=== PATIENT | female | born 1990 | race Caucasian/White ===

== ENCOUNTER 2018-09-18 11:21 | Outpatient (CLI) | payer BC ==
--- NOTE | 2018-09-18 11:59 | RAD ---
3 VIEWS RIGHT ANKLE: Date: 09/18/18 COMPARISON: None. HISTORY: Pain. FINDINGS: The talar dome and ankle mortise appear intact. There is no displaced fracture or evidence of disloca tion. There is a pes planus deformity. IMPRESSION: No acute fracture or dislocation. POS: [facility]
== END 2018-09-18 11:22 | disposition home or self-care (01) ==
LOC: BICRAD 11:21
PROVIDERS: ATTEND Specialist
DX: M25.571 Pain in right ankle and joints of right foot (principal)

== ENCOUNTER 2018-10-30 15:06 | Outpatient (CLI) | payer BC ==
--- NOTE | 2018-10-30 18:01 | MRI ---
MRI OF THE RIGHT HINDFOOT WITHOUT IV CONTRAST: 10/30/18 INDICATION: History of tarsal tunnel syndrome with right foot/ankle pain for many years has gotten worse in the l ast month. History of flat feet and osteogenesis imperfecta. COMPARISON: Right ankle radiograph dated 09/18/18. FINDINGS: There is a low lying muscle belly with separate tendon seen posterior to the FHL suspicious for an ac cessory flexor hallucis longus tendon. Fat signal intensity within the tarsal tunnel is preserved. FD L and posterior tib are within normal limits. There is no muscle atrophy of the plantar based intrins ic foot musculature to suggest a denervation. There is mild tenosynovitis of the medial flexor tendon s. There is mild subcutaneous edema seen within the ankle. There is prominent periarticular ganglion cyst seen within the sinus tarsi measuring approximately 3. 2 x 1.1 cm. The Achilles tendon appears within normal limits. The peroneal tendons appear within normal limits. The extensor tendons are normal appearing. The ATFL, PTFL, calcaneofibular and medial deltoid appear within normal limits. The plantar fascia ap pears within normal limits. No osteochondral defect is evident. The visualized Lisfranc ligament is i ntact. IMPRESSION: 1. 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 There is mild tenosynovitis involving the posterior tibialis, F DL and flexor hallucis longus tendons. There is no intrinsic foot musculature signal abnormality to s uggest presence of denervation. 2. Pes planus with a periarticular ganglion seen adjacent to the talonavicular and sinus tarsi j oints measuring 3.2 x 1.2 cm. POS: [facility]
--- NOTE | 2018-10-30 18:10 | MRI ---
MRI OF RIGHT FOREFOOT PERFORMED WITHOUT CONTRAST ENHANCEMENT: 10/30/18 HISTORY: Tarsal tunnel syndrome, right foot and ankle pain for years. Gotten worse in the last month. History of osteogenesis imperfecta. COMPARISON: MRI of the right ankle which was done earlier today and 09/18/18 CT of the right ankle. The hindfoot and midfoot findings have been described in detail on the ankle MRI. This examination wi ll be confined to description of the findings in the forefoot. Lisfranc joint is normal in alignment. Lisfranc ligament is intact. There is no abnormal marrow signal change noted within the tarsals or p halanges to suggest any type of stress reaction or evidence of a fracture. Arthritic changes of the midfoot and pes planus type deformity are noted. This has been described in the previous report. IMPRESSION: Unremarkable MRI of the forefoot. Please refer to the ankle film concerning the hind and midfoot find ings. POS: [facility]
== END 2018-10-30 15:07 | disposition home or self-care (01) ==
LOC: BICMRI 15:06
PROVIDERS: ATTEND Podiatrist Foot & Ankle Surgery
DX: G57.51 Tarsal tunnel syndrome, right lower limb (principal)

== ENCOUNTER 2019-12-26 13:37 | Outpatient (CLI) | payer BC | END 2019-12-26 13:38 | disposition home or self-care (01) | LOC: DTY/OP 13:37 | PROVIDERS: ATTEND Surgery | DX: E66.01 Morbid (severe) obesity due to excess calories (principal) | CPT/HCPCS: 97802 ==

== ENCOUNTER 2020-01-24 11:54 | Outpatient (CLI) | payer BC ==
--- NOTE | 2020-01-24 13:38 | RAD ---
PA AND LATERAL VIEWS CHEST: 01/24/20 HISTORY: Preoperative evaluation. FINDINGS: Comparison is made with exam of 02/05/13. The cardiomediastinum is normal. The lungs are expanded and clear. The bony thorax is normal. IMPRESSION: Normal exam. POS: [facility]
[2020-01-24 14:05] LABS: #Eosinphils 0.1 10x3/uL (0.0-0.5); #Monocytes 0.6 10x3/uL (0.0-1.1); #Neutrophils 5.4 10x3/uL (1.5-8.4); %Basophils 0.3 % (0.0-2.0); %Lymphocytes 37.2 % (18.0-47.0); %Monocytes 6.5 % (0.0-10.0); %Neutrophils 54.4 % (40.0-75.0); Hemoglobin 11.9 g/dL (12.0-16.0); Mean Corpuscular HGB CONC 33.2 G/DL (32.0-36.0); Mean Corpuscular Hemoglobin 30.2 PG (27.0-33.0); Mean Corpuscular Volume 90.9 fl (80.0-100.0); Mean Platelet Volume 11.8 fl (7.4-10.4); Platelet Count 230 10x3/uL (130-400); RBC Distribution Width 12.7 % (11.5-14.5); Red Blood Cell (RBC) Count 3.94 10x6/uL (3.90-5.20); White Blood Cell (WBC) Count 9.9 10x3/uL (4.5-11.0)
[2020-01-24 14:38] LABS: BHCG - Serum Negative (NEGATIVE); Pregs Control Background? CLEAR/WHITE (CLR/WHITE); Pregs Control Bar Appear? YES (CONTROL BAR)
[2020-01-24 14:45] LABS: ALT (SGPT) 34 U/L (8-55); AST (SGOT) 18 U/L (5-34); Alkaline Phosphatase 56 U/L (40-110); Anion Gap 14 mmol/L (10-20); BUN (Urea Nitrogen) 19 mg/dL (7.0-18.7); Bilirubin, Total 0.4 mg/dL (0.2-1.2); Calc. Creatinine Clearance 0 mL/min (70-130); Calcium 8.9 mg/dL (7.8-10.44); Carbon Dioxide 23 mmol/L (22-29); Chloride 108 mmol/L (98-107); Estimated GFR-MDRD 81; Globulin 2.6 g/dL (2.4-3.5); Glucose 78 mg/dL (70-105); Potassium 3.2 mmol/L (3.5-5.1); Protein, Total 6.6 g/dL (6.0-8.3); Sodium 142 mmol/L (136-145)
[2020-01-25 03:09] LABS: SARS-CoV-2 MS2 Positive; SARS-CoV-2 N Gene Negative; SARS-CoV-2 S Gene Negative; SARS-CoV-2 by NAA Not Detected (NotDetected); SARS-CoV-2 orf1ab Negative
== END 2020-01-24 11:55 | disposition home or self-care (01) ==
LOC: LABBT 11:54
PROVIDERS: ATTEND Surgery
DX: Z01.818 Encounter for other preprocedural examination (principal); E66.01 Morbid (severe) obesity due to excess calories; Z20.828 Contact with and (suspected) exposure to other viral communicable diseases
CPT/HCPCS: 71046; 80053; 83036; 84703; 85025; 87635; 93005; 93010; U0003

== ENCOUNTER 2020-03-07 22:00 | Emergency (ER) | payer BC ==
[2020-03-07 22:26] LABS: #Basophils 0.1 thou/uL (0.0-0.2); #Eosinphils 0.3 thou/uL (0.0-0.7); #Lymphocytes 4.2 thou/uL (1.20-3.40); #Monocytes 0.6 thou/uL (0.11-0.59); #Neutrophils 3.9 thou/uL (1.40-6.50); %Basophils 1.2 % (0.0-1.0); %Eosinophils 2.8 % (0.0-10.0); %Monocytes 6.9 % (0.0-10.0); %Neutrophils 43.1 % (42.0-75.0); Hemoglobin 13.6 g/dL (12.0-16.0); Mean Corpuscular HGB CONC 33.3 g/dL (32.0-36.0); Mean Corpuscular Hemoglobin 31.2 pg (27.0-31.0); Mean Corpuscular Volume 93.8 fL (78.0-98.0); Mean Platelet Volume 8.8 fL (7.4-10.4); Platelet Count 194 thou/uL (130-400); RBC Distribution Width 12.2 % (11.5-14.5); Red Blood Cell (RBC) Count 4.36 mill/uL (4.20-5.40); White Blood Cell (WBC) Count 9.1 thou/uL (4.8-10.8)
[2020-03-07 22:32] LABS: BHCG - Serum Negative (NEGATIVE); Pregs Control Background? CLEAR/WHITE (CLR/WHITE); Pregs Control Bar Appear? YES (CONTROL BAR)
[2020-03-07] MEDS ORDERED: Ketorolac Tromethamine 30 MG/ML VIAL ONE (22:32)
[2020-03-07 22:48] LABS: ALT (SGPT) 18 U/L (8-55); AST (SGOT) 18 U/L (5-34); Albumin 3.7 g/dL (3.5-5.0); Alkaline Phosphatase 95 U/L (40-110); Anion Gap 14 mmol/L (10-20); BUN (Urea Nitrogen) 10 mg/dL (7.0-18.7); Bilirubin, Total 0.2 mg/dL (0.2-1.2); Calc. Creatinine Clearance 0 mL/min (70-130); Calcium 8.9 mg/dL (7.8-10.44); Carbon Dioxide 24 mmol/L (22-29); Chloride 110 mmol/L (98-107); Globulin 2.9 g/dL (2.4-3.5); Glucose 85 mg/dL (70-105); Potassium 4.2 mmol/L (3.5-5.1); Protein, Total 6.6 g/dL (6.0-8.3); Sodium 144 mmol/L (136-145)
--- NOTE | 2020-03-08 07:28 | ULT ---
PELVIC ULTRASOUND: Date: 03/07/2020 HISTORY: Pelvic pain. FINDINGS: Real-time imaging of the pelvis was obtained transabdominally, as well as with an endovaginal probe. This shows a uterus measuring 9.0 cm in length. The endometrium is in the 8-9 mm range. An IUD is pre sent. The left ovary is normal in size and appearance. There is a complex cyst involving the right ovary. A very thin rim of ovarian tissue is seen. COLOR DOPPLER EVALUATION WITH SPECTRAL ANALYSIS: Normal flow is shown to both adnexa. IMPRESSION: Large complex right ovarian cyst measuring in the 5.0 cm range. No evidence for torsion. POS: [facility]
== END 2020-03-07 23:35 | disposition home or self-care (01) ==
LOC: ERS 22:00
DX: N83.291 Other ovarian cyst, right side (principal)
CPT/HCPCS: 36415; 76856; 80053; 84703; 85025; 96374; J1885

== ENCOUNTER 2020-08-07 15:14 | Outpatient (CLI) | payer BC | END 2020-08-07 15:15 | disposition home or self-care (01) | LOC: BICRAD 15:14 | PROVIDERS: ATTEND Nurse Practitioner Family | DX: S39.92XA Unspecified injury of lower back, initial encounter (principal); M54.5 Low back pain; M47.816 Spondylosis without myelopathy or radiculopathy, lumbar region; M47.817 Spondylosis without myelopathy or radiculopathy, lumbosacral region | CPT/HCPCS: 72100; 72202; 72220 ==

== ENCOUNTER 2020-11-19 12:54 | Outpatient (CLI) | payer BC | END 2020-11-19 12:55 | disposition home or self-care (01) | LOC: BICMRI 12:54 | DX: M54.6 Pain in thoracic spine (principal) | CPT/HCPCS: 72146 ==

== ENCOUNTER 2021-02-10 10:36 | Day surgery (SDC) | payer BC ==
[2021-02-10] MEDS ORDERED: Fentanyl 100 MCG/2 ML VIAL ONE ×5 (10:50→13:13)
[2021-02-10] MEDS ORDERED: Bupivacaine PF 0.5% 30 ML VIAL ONE (10:52)
[2021-02-10] MEDS ORDERED: Lidocaine 1% w/Epinephrine 1:100K 20 ML VIAL ONE (10:52)
[2021-02-10] MEDS ORDERED: Levofloxacin 500 mg/D5W 100 ml Premix Bag ONE (11:01)
[2021-02-10] MEDS ORDERED: Ketorolac Tromethamine 30 MG/ML VIAL ONE (11:01)
[2021-02-10] MEDS ORDERED: PROPOFOL 200 MG/20 ML VIAL ONE (11:13)
[2021-02-10] MEDS ORDERED: Ondansetron PF 4 MG/2 ML Vial ONE (11:13)
[2021-02-10] MEDS ORDERED: Glycopyrrolate 0.2 MG/ML 5 ML SYRINGE ONE (11:13)
[2021-02-10] MEDS ORDERED: Dexamethasone 20 MG/5 ML VIAL ONE (11:13)
[2021-02-10] MEDS ORDERED: Lidocaine 1% PF 5 ML VIAL ONE (11:13)
[2021-02-10] MEDS ORDERED: Rocuronium Bromide 10 MG/ML (10ML VIAL) ONE (11:13)
[2021-02-10] MEDS ORDERED: Promethazine HCl 25 MG/ML VIAL ONE (12:09)
[2021-02-10] MEDS ORDERED: HYDROcodone/Acetaminophen 5/325 mg Tablet ONE (14:30)
== END 2021-02-10 15:45 | disposition home or self-care (01) ==
LOC: SDC 10:36
PROVIDERS: ATTEND Specialist
PROC: 0FT44ZZ Resection of Gallbladder, Percutaneous Endoscopic Approach (ICD-10-PCS; principal; 2021-02-10)
DX: K80.12 Calculus of gallbladder with acute and chronic cholecystitis without obstruction (principal); K82.1 Hydrops of gallbladder; G89.29 Other chronic pain; M54.2 Cervicalgia; M54.50 Low back pain, unspecified; Q78.0 Osteogenesis imperfecta; Z79.899 Other long term (current) drug therapy
CPT/HCPCS: 88304; C1713; J1100; J1885; J1956; J2405; J2550; J2704; J3010; S0020

== ENCOUNTER 2024-03-18 13:16 | Outpatient (CLI) | payer BC | END 2024-03-18 13:17 | disposition home or self-care (01) | LOC: BICRAD 13:16 | PROVIDERS: ATTEND Registered Nurse | DX: M54.6 Pain in thoracic spine (principal); M47.26 Other spondylosis with radiculopathy, lumbar region; M47.817 Spondylosis without myelopathy or radiculopathy, lumbosacral region; M43.8X4 Other specified deforming dorsopathies, thoracic region | CPT/HCPCS: 72070; 72100 ==